=== PATIENT | male | born 1970 | race Two or more races ===

== ENCOUNTER 2024-11-10 21:27 | Emergency (ER) | payer OTHER ==
[~2024-11-10] VITALS: Ht 188 cm; Wt 100.2 kg
[2024-11-10] MEDS ORDERED: KETOROLAC TROMETHAMINE 60 MG VIAL IM ONE ×2 (22:15→23:08)
[2024-11-10] MEDS ORDERED: NORFLEX100MG PO (23:00)
== END 2024-11-10 23:40 | disposition home or self-care (01) ==
LOC: ER 21:27
DX: S80.01XA Contusion of right knee, initial encounter (principal); X58.XXXA Exposure to other specified factors, initial encounter; Y93.89 Activity, other specified; Y92.89 Other specified places as the place of occurrence of the external cause; Y99.9 Unspecified external cause status; I10 Essential (primary) hypertension; Z88.8 Allergy status to other drugs, medicaments and biological substances